=== PATIENT | male | born 1965 | race Caucasian/White ===

== ENCOUNTER 2019-04-17 13:20 | Inpatient (IN) | payer OTHER, SELFPAY ==
[2019-04-17] VITALS (23 sets, daily range): BP systolic 103–157; BP diastolic 67–113; PULSE 58–81; RESP 10–21; TEMP 36.4; O2SAT 97–100; BMI 29.5; BMI 29.6; BMI 29.7
--- NOTE | 2019-04-17 13:30 | NURSING ---
STEMI SURVEILLANCE DIRECTOR ELIZABETH
--- NOTE | 2019-04-17 13:31 | EKG12_ITS ---
Test Reason : AM Blood Pressure : / mmHG Vent. Rate : 063 BPM Atrial Rate : 063 BPM P-R Int : 150 ms QRS Dur : 082 ms QT Int : 428 ms P-R-T Axes : 053 -45 030 degrees QTc Int : 437 ms Normal sinus rhythm Left axis deviation T wave abnormality, consider anterior ischemia Abnormal ECG When compared with ECG of 18-APR-2019 04:48, MANUAL COMPARISON REQUIRED, DATA IS UNCONFIRMED Confirmed by ESTRELLITA JOHNSON ([id number]), advertising editor ELINOR BATES ([id number]) on 04/20/2019 7:29:54 AM Referred By: KAIT Confirmed By:ESTRELLITA JOHNSON
--- NOTE | 2019-04-17 13:33 | NURSING ---
NO OLD EKGS
--- NOTE | 2019-04-17 13:33 | ED.VIS.GEN ---
History of Present Illness Chief Complaint: Chest Pain Onset: Today Current Severity: Severe Maximum Severity: Severe Narrative: Patient presents with 15-minute history of sudden severe crushing chest pain with shortness of breath and diaphoresis. He denies significant past medical history. He denies cardiac history. Past Medical History - Allergies and Home Meds Allergies/Adverse Reactions: Allergies Penicillins Allergy (Verified 04/17/19 13:23) Other Surgical History: - - [place] teeth Review of Systems General: Denies: Chills, Fever Eyes: Denies: Visual changes - bilaterally Cardiovascular: Reports: Chest pain Respiratory: Reports: Dyspnea Gastrointestinal: Denies: Vomiting Musculoskeletal: Denies: Back pain Skin: Denies: Rash Neurological: Denies: Headache Hematologic: Denies: Easy bruising, Easy bleeding Allergy: Denies: Uticaria Physical Exam Vital Signs/Narrative: Vital Signs Temp Pulse Resp BP Pulse Ox 04/17/19 13:23 97.5 F L 71 20 H 113/73 99 Inital Vital Signs reviewed: Yes General: Well nourished, Well developed Head: Normocephalic ENT: Moist mucous membranes Neck: Supple Cardiovascular: Regular rate, Regular rhythm Respiratory: No distress, CTA bilaterally Abdomen: Soft, Nontender Extremities: Nontender Skin: Diaphoresis Neurological: Alert, Oriented x3 Psychological: - - Anxious Diagnostic/Tx/Re-eval - EKG Initial EKG Interpretation: Sinus Rhythm - Initial EKG reveals anterior ST elevation. - Medical Decision Making EKG has been completed as I enter the room. He has evidence of an anterior ST elevation MO. Code STEMI is called. Patient is consented for cardiac cath. He is given aspirin, Brilinta, and heparin. Patient is taken immediately to the Continuous Absorption Process Operator. I have spoken with Dr. Cabral. Eligio Zaragoza, hospitalist, is present in the ER to accompany the patient to the Continuous Absorption Process Operator. ED Disposition - Plan for ED Patient: Disposition: Acute Care Hospital [facility] Diagnosis: STEMI (ST elevation myocardial infarction)
[2019-04-17 13:37] LABS: Absolute Lymphocyte Count 6.53 X10^3/uL (0.83-4.51); Absolute Neutrophil Count 6.3 X10^3/uL (2.0-7.7); Basophil# 0.14 X10^3/uL; Basophil% 0.9 % (0-1); Eosinophil# 0.33 X10^3/uL; Eosinophils% 2.2 % (0-5); Hematocrit 42.9 % (40-54); Hemoglobin 14.9 g/dL (13.0-16.5); Lymphocyte # 6.53 X10^3/ul (4.0); Lymphocyte % 44.2 % (19-41); Mean Corp Hgb Conc 34.7 g/dL (32-36); Mean Corpuscular Volume 89.4 fL (80-94); Mean Platelet Vol. 9.4 fl (6.2-12.0); Monocyte# 1.39 X10^3/uL; Monocyte% 9.4 % (0-10); NRBC Flagged by Analyzer 0 % (0-5); Neutrophil # 6.29 X10^3/uL (2.7-7.7); Neutrophil % 42.6 % (47-70); POSITIVE DIFFERENTIAL YES; POSITIVE MORPHOLOGY YES; Platelet Count 294 K/mm3 (150-450); RBC Distribution Width CV 12.3 % (11.6-14.6); RBC Distribution Width SD 40.5 fl (35.1-43.9); White Blood Count 14.8 K/mm3 (4.4-11.0)
[2019-04-17 13:38] LABS: Differential Indicated SCAN CRITERIA MET
[2019-04-17] MEDS: Heparin Injection (Vial) 5,000 UNIT/ML VIAL 4000 UNIT IV (13:40)
[2019-04-17] MEDS: Aspirin 81 MG TAB.CHEW 324 MG PO (13:40)
[2019-04-17] MEDS: TICAGRELOR 90 MG TABLET 180 MG PO (13:40)
--- NOTE | 2019-04-17 13:40 | CM.ED ---
SOCIAL WORK RESPONDED TO STEMI ALERT. PATIENT'S ROOMMATE, MELODIECHETNA ([phone]) PRESENT. EMOTIONAL SUPPORT PROVIDED. ROOMMATE PROVIDED CONTACT INFORMATION FOR PATIENT'S DAUGHTER, JOHNNY BOWSER AND STATES HE UPDATED DAUGHTER ON PATIENT'S STATUS. CALL TO PATIENT'S DAUGHTER, JOHNNY. INTRODUCED ROLE AND PROVIDED EMOTIONAL SUPPORT. DAUGHTER STATES LIVES OUT OF [facility]. DAUGHTER STATES PATIENT MOVED TO [place] 8-9 YEARS AGO. DAUGHTER REPORTS PATIENT SERVED IN [employer] AND BELIEVES PATIENT HAS [employer] BENEF[employer]. REGISTRATION JERMAIN. 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
[2019-04-17] MEDS: 0.9% Normal Saline 1,000 ML 999 ML IV (13:41)
[2019-04-17 13:47] LABS: Prothrombin Time (Protime)PT. 12.4 SECONDS (11.7-14.9)
[2019-04-17 13:52] LABS: Reactive Lymphocyte 2+
[2019-04-17 13:56] LABS: Anion Gap 11 (5-15); BUN 14 mg/dL (7-18); BUN/Creat Ratio 12.4 RATIO (10-20); Calcium,Total 8.9 mg/dL (8.5-10.1); Chloride 111 mmol/L (98-107); Creatinine, Serum 1.13 mg/dL (0.70-1.30); EST Glomerular Filtration Rate 72 mL/min (>60); Est Glom Filt Rate - Afr Amer 87 mL/min (>60); Estimated Creatinine Clearance 85.44 ml/min; Glucose 133 mg/dL (74-106); Sodium Level 141 mmol/L (136-145)
--- NOTE | 2019-04-17 14:00 | HP.PCM_ITS ---
History of Present Illness Date of Admission: 04/17/19 Chief Complaint: Chest pain and shortness of breath, today The patient is a 53 year old M with no significant past medical history or no recent physician visit came to ED with sudden onset of chest pain or shortness of breath about 50 minutes prior to arrival in ER. The patient was significantly diaphoretic, restless because of chest pain. Chest pain was 10/10, crushing in type, midsternal in location without aggravating or relieving factor associated with shortness of breath. EKG shows normal sinus rhythm with ST elevation in anterior lateral leads. STEMI alert was called. Patient was given aspirin, Brilinta and heparin IV push and and immediately moved to the Lumber Press Operator. [] Past Medical History Allergies Penicillins Allergy (Verified 04/17/19 13:23) Other Home Medications: Ambulatory Orders Medication Instructions Recorded NK 04/17/19 Surgical History: - - [place] teeth Smoking Status: Current every day smoker - *Family History Maternal History Items: Cancer Review of Systems Constitutional: Denies: Chills, Fever, Weight Change HEENT: Denies: Head Aches, Sinus Congestion, Sinus Drainage Cardiovascular: Reports: Chest Pain. Denies: Palpitations Respiratory: Reports: Shortness of Breath, Shortness of breath at rest. Denies: Cough, Sputum production Gastrointestinal: Denies: Abdominal Pain, Nausea, Vomiting Genitourinary: Denies: Dysuria Musculoskeletal: Denies: Joint Pain, Joint Tenderness Skin: Denies: Rash, Wounds Neurological: Denies: Numbness, Tingling, Focal weakness Psychiatric: Denies: Anxiety, Depression, Homicidal Ideations, Suicidal Ideations Hematologic/ Lymphatic: Denies: Easy Bruising, Easy Bleeding VTE Information - Inpt Only VTE Present on Admission: No VTE Mechan Device Prophylaxis: SCD's VTE Pharm Prophylaxis ordered?: Yes Patient Problems: Active and Suspected Problems STEMI (ST elevation myocardial infarction) (Acute) - Physical Exam Vitals/I&O's: Vital Signs Temp Pulse Resp BP Pulse Ox 97.5 F L 71 20 H 113/73 99 04/17/19 13:46 04/17/19 13:46 04/17/19 13:46 04/17/19 13:46 04/17/19 13:46 Oxygen Delivery Method Room Air Weight: 224 lb 3.362 oz Body Mass Index (BMI) 29.5 General: Alert, Oriented x3, Cooperative HEENT: Atraumatic, PERRLA, EOMI, Normocephalic Oral: No Gingival or Mucosal Lesions/ Ulcerations, Dry Mucosa Neck: Supple, No JVD, Negative Carotid Bruits Lungs: Clear to auscultation, No rhonchi, No wheeze, No rales, Diminished Cardiovascular: Regular rate, Regular Rhythm, Normal S1, Normal S2, No murmurs Abdomen: Bowel Sounds Present, Soft, Non Tender, Non-Distended Extremities: No edema, Capillary Refill Less than 3 Seconds Skin: No rashes, No breakdown Musculoskeletal: No Tenderness to Palpation of Joints or Extremities, Arthritic Changes Neurological: Cranial nerves II-XII grossly intact Psych/Mental Status: Normal Affect, Appropriate Laboratory Results 04/17/19 13:30: WBC 14.8 H, RBC 4.80, Hgb 14.9, Hct 42.9, MCV 89.4, MCH 31.0, MCHC 34.7, RDW Std Deviation 40.5, RDW Coeff of Lillian 12.3, Plt Count 294, MPV 9.4, Immature Gran % (Auto) 0.700, Neut % (Auto) 42.6 L, Lymph % (Auto) 44.2 H, [place] % (Auto) 9.4, Eos % (Auto) 2.2, Baso % (Auto) 0.9, Absolute Neuts (auto) 6.3, Absolute Lymphs (auto) 6.53 H, Nucleated RBC % 0, Reactive Lymphocytes 2+ 04/17/19 13:30: PT 12.4, INR 1.0, APTT 22.0 L 04/17/19 13:30: Sodium 141, Potassium 3.0 L, Chloride 111 H, Carbon Dioxide 19.0 L, Anion Gap 11, BUN 14, Creatinine 1.13, Estim Creat Clear Calc 85.44, Est GFR (MDRD) Af Amer 87, Est GFR (MDRD) Non-Af 72, BUN/Creatinine Ratio 12.4, Glucose 133 H, Calcium 8.9, Troponin I < 0.015 Current Medications Sodium Chloride () 1,000 mls @ 999 mls/hr IV .Q1H1M ABRAM Last Admin: 04/17/19 13:41 Dose: 999 mls/hr Documented by: Assessment/Plan All Active Problems STEMI (ST elevation myocardial infarction) (Acute) This 53-year gentleman with no significant history admitted with 15 minutes of severe chest pain or shortness of breath and EKG finding consistent with anterolateral STEMI. In the Lumber Press Operator, patient was found to have mid LAD occluded which was stented. Mild disease in circumflex, OM1 and proximal RCA less than 30%. EF 65% by LV gram normal LV wall motion and systolic function. Discussed with Dr. Cabral in Lumber Press Operator. 1. Anterior lateral wall STEMI: Patient is immediately moved to Lumber Press Operator after giving aspirin, Brilinta and heparin 4000 IV push. Patient on aspirin, Brilinta, metoprolol and losartan and high intensity statin. 2D echo ordered. 2. Arrhythmia: Brief episode of torsade/ventricular fibrillation. As per Dr. Cabral, it was brief less than 10 seconds. Patient normal sinus rhythm was recovered after 1 DC shock. Magnesium 2 g IV sulfate ordered. Patient has hypokalemia, K3.0 and potassium is being replaced. Magnesium stat ordered. 3. DVT prophylaxis: Lovenox 40 mg subcu daily, to be started 24 hours after removal of cardiac cath access sheath. B/L SCDs. Patient had received IV heparin bolus as mentioned above. Inpatient E&M: [id number] In Hosp L3
[2019-04-17 14:25] LABS: ACT Activated Clotting Time 191 sec (74-137)
--- NOTE | 2019-04-17 14:33 | CL.D_ITS ---
Patient Name: CURT BOWSER Study Date: 04/17/2019 Performing: Randy Cabral MD Ht: 72.83 inches 185 cm : 1965 Wt: 224.87 lbs 102 kg Age: 53 Gender: male BSA: 2.26 PROCEDURE(S) PERFORMED HS43-JRS/COR/LV CLINICAL PROFILE AND INDICATIONS Patient presents with STEMI for emergent cardiac cath. Indications: ACS <= 24 hrs, Suspected CAD Heart Failure: None Stress/Imaging Stress/Image Study Performed: No Angina Classification Anginal Classification w/in 2 Weeks: No symptoms CAD Presentations: STEMI. Symptom onset Date/Time: 04/17/2019 13:10:00 Time Estimated Comorbidities/Risk Factors: Current/Recent Smoker (< 1year) Hypertension Dyslipidemia CONCLUSIONS Non obstructive coronary arteries Single vessel CAD of the LAD Normal LV size, wall motion,and systolic function Normal Left Ventricular systolic function LVEF: by LV gram 65 % Elevated Left Ventricular End Diastolic Pressure RECOMMENDATIONS Referred for immediate PCI DESCRIPTION OF PROCEDURE The patient arrived to the procedure lab. The risks and benefits of the procedure as well as a full d escription of our services here and current unavailability of surgical backup were fully explained to the patient and/or their significant other prior to the catheterization. The Timeout was completed, verifying the correct patient and procedure. The patient's procedural site was prepped and draped in the usual fashion. Local anesthetic was given subcutaneously to right groin region with Lidocaine 2%. Using a modified Seldinger technique, arterial access was obtained via the right femoral artery, a 6 Fr sheath was inserted. Right Coronary Artery selective angiography was then performed in multiple v iews using a 4 Fr. 3DRC catheter. Left Coronary Artery selective angiography was performed in multipl e views using a 6 Fr.. Left Ventriculography was performed in VILLALBA projection using a 4 Fr. Pigtail ca theter. LV to AO pullback pressures were then recorded.Contrast was injected through the sheath and the Right Iliac and Femoral artery were assessed for possible closure device.The arterial sheath was sutured in place and capped CORONARY ANGIOGRAPHY DOMINANCE: Right Dominant LEFT HEART ASSESSMENT Left Ventricular Ejection Fraction: by LV Gram 65 % Normal LV wall motion Normal Left Ventricular systolic function LVEDP: 17 mmHg LEFT MAIN: Angiographically normal LEFT ANTERIOR DESCENDING ARTERY: MID LAD: is occluded CIRCUMFLEX ARTERY: Mild luminal irregularities less than 30% OM 1: Proximal - Mild luminal irregularities less than 30% RIGHT CORONARY ARTERY: PROX RCA: Mild luminal irregularities less than 30% COMPLICATIONS PROCEDURE MEDICATIONS Oxygen: 2 L/min via nasal cannula Heparin 6000 unit(s) IV 04/17/2019 13:43:12 Nitro 200 mcg IC 04/17/2019 13:52:05 Magnesium Sulfate drip started 52 ml/hr ^FreeText^ 04/17/2019 13:54:50 Potassium Chloride 10 mEq in 100cc NS 04/17/2019 14:04:04 SUMMARY OF HEMODYNAMIC DATA Time AIR REST ECG 13:36:12 AO 125/68 (92) SA 13:40:29 AO 323/-15 (101) 13:46:12 AO -2/-5 (-3) 13:46:20 AO 30/15 (40) 13:46:26 AO 71/39 (61) 13:46:31 LV 121/-7, 19 14:16:02 LV 123/-6, 26 14:16:09 LVp 121/-8, 23 14:16:18 AOp 112/62 (85) 14:16:23 Signed By Randy Cabral MD On 04/17/2019 2:32:34 PM Randy Cabral MD
--- NOTE | 2019-04-17 15:05 | EKG12_ITS ---
Test Reason : POST-PCI Blood Pressure : / mmHG Vent. Rate : 074 BPM Atrial Rate : 074 BPM P-R Int : 176 ms QRS Dur : 086 ms QT Int : 410 ms P-R-T Axes : 062 -37 020 degrees QTc Int : 455 ms Normal sinus rhythm Left axis deviation Abnormal ECG When compared with ECG of 17-APR-2019 13:25, MANUAL COMPARISON REQUIRED, DATA IS UNCONFIRMED Confirmed by ESTRELLITA JOHNSON ([id number]), editorial clerk ELINOR BATES ([id number]) on 04/20/2019 7:31:30 AM Referred By: ELIZABETH Confirmed By:ESTRELLITA JOHNSON
--- NOTE | 2019-04-17 15:35 | ECHOD_ITS ---
Reason For Study: s/p TN Procedure This was a 2D Doppler, Color Flow transthoracic echocardiogram. Exam performed portable in ICU/CCU. Left Ventricle Normal size and thickness. The estimated ejection fraction is 60 %. Normal diastology for age. Anterior [place] : Mildly hypokinetic. Septal [place] : Mildly hypokinetic. Right Ventricle Normal size and thickness. Normal systolic function. Atria Normal left atrium. Normal right atrium. Normal atrial septum. Mitral Valve The mitral valve is structurally normal. No prolapse or stenosis seen. Tricuspid Valve Normal tricuspid valve. Unable to estimate RV systolic pressure due to insufficient tricuspid regurgitant envelope. Aortic Valve Normal aortic valve. Trisinus/trileaflet aortic valve. Pulmonic Valve Normal pulmonic valve. Great Vessels Normal aortic root. Normal arch. Normal inferior vena cava. Inferior vena cava collapse with sniff. Pericardium/Pleural No pericardial effusion. MMode/2D Measurements & Calculations LVIDd: 4.7 cm IVSd: 1.5 cm Ao root diam: 3.8 cm LVIDs: 2.7 cm LVPWd: 1.0 cm LA dimension: 3.9 cm RVDd: 3.7 cm FS: 42.1 % LAV(MOD-bp): 60.7 ml LA A4 area: 21.9 cm2 RA A4 area: 14.7 cm2 LAV(MOD-bp) Indexed: 26.9 ml/m2 LAV(MOD-sp2): 55.4 ml LAV(MOD-sp4): 64.1 ml Time Measurements MV dec time: 0.25 sec Doppler Measurements & Calculations MV E max eddy: 85.7 cm/sec Lat [place]: 9.0 cm/sec Med [place]: 10.3 cm/sec MV A max eddy: 75.5 cm/sec E/E' lat: 9.5 E/E' med: 8.4 MV E/A: 1.1 MV V2 max: 94.4 cm/sec MV P1/2t max eddy: 94.4 cm/sec Ao V2 max: 117.4 cm/sec MV max P.6 mmHg MV P1/2t: 121.5 msec Ao max P.5 mmHg MV V2 mean: 51.9 cm/sec MV dec slope: 227.6 cm/sec2 Ao V2 mean: 78.2 cm/sec MV mean P.3 mmHg MVA(P1/2t): 1.8 cm2 Ao mean P.7 mmHg MV V2 VTI: 32.4 cm Ao V2 VTI: 25.0 cm LV V1 max: 102.7 cm/sec PA V2 max: 82.8 cm/sec LV V1 max P.2 mmHg LV V1 mean P.3 mmHg LV V1 mean: 69.8 cm/sec LV V1 VTI: 25.7 cm Interpretation Summary The estimated ejection fraction is 60 %. Normal diastology for age. Anterior [place] : Mildly hypokinetic Septal [place] : Mildly hypokinetic Unable to estimate RV systolic pressure due to insufficient tricuspid regurgitant envelope. There is no comparison study available. Ordering Physician: Randy Cabral Referring Physician: No PCP Performed By: Willie Baltazar [facility]
[2019-04-17 15:42] LABS: Magnesium 2.1 mg/dL (1.6-2.6)
[2019-04-17] MEDS: 0.9% Saline Lock 10 ML Syringe IV (17:03)
[2019-04-17] MEDS: 0.9% Normal Saline 1,000 ML 150 ML IV (17:03)
[2019-04-17 17:16] LABS: ACT Activated Clotting Time 131 sec (74-137)
[2019-04-17 19:47] LABS: Potassium 4.1 mmol/L (3.5-5.1)
[2019-04-17] MEDS: Metoprolol Tartrate 25 MG Tablet PO (21:12)
[2019-04-17] MEDS: TICAGRELOR 90 MG TABLET PO (21:12)
[2019-04-17] MEDS: Atorvastatin Calcium 80 MG Tablet PO (21:12)
[2019-04-18] VITALS (24 sets, daily range): BP systolic 118–161; BP diastolic 54–99; PULSE 51–69; RESP 10–18; TEMP 36.3–37; O2SAT 96–99; BMI 29.5
[2019-04-18 03:28] LABS: Hematocrit 41.2 % (40-54); Hemoglobin 13.9 g/dL (13.0-16.5); Mean Corp Hgb Conc 33.7 g/dL (32-36); Mean Corpuscular Hgb 30.5 pg (27.0-32.0); Mean Corpuscular Volume 90.5 fL (80-94); Mean Platelet Vol. 9.5 fl (6.2-12.0); Platelet Count 242 K/mm3 (150-450); RBC Distribution Width CV 12.3 % (11.6-14.6); RBC Distribution Width SD 40.7 fl (35.1-43.9); Red Blood Count 4.55 M/mm3 (4.6-6.2); White Blood Count 14.4 K/mm3 (4.4-11.0)
[2019-04-18 04:15] LABS: ALB/GLOB Ratio 1.1 RATIO (0.9-2.4); AST(SGOT) 32 U/L (15-37); Alanine Aminotransfer ALT/SGPT 31 U/L (16-61); Albumin, Serum 3.5 g/dL (3.2-5.0); Alkaline Phosphatase 91 U/L (45-117); Anion Gap 8 (5-15); BUN 10 mg/dL (7-18); BUN/Creat Ratio 10.6 RATIO (10-20); Calcium,Total 8.2 mg/dL (8.5-10.1); Chloride 108 mmol/L (98-107); Cholesterol 166 mg/dL (200); Creatinine, Serum 0.94 mg/dL (0.70-1.30); EST Glomerular Filtration Rate 89 mL/min (>60); Est Glom Filt Rate - Afr Amer 107 mL/min (>60); Estimated Creatinine Clearance 102.71 ml/min; Globulin 3.2 g/dL (2.2-4.2); Glucose 107 mg/dL (74-106); High Density Lipoprotein 43 mg/dL; Potassium 4.3 mmol/L (3.5-5.1); Protein, Total 6.7 g/dL (6.4-8.2); Sodium Level 141 mmol/L (136-145); Thyroid Stim Hormone (TSH) 5.28 uIU/mL (0.358-3.74); Triglycerides 155 mg/dL; Very Low Density Lipoprotein 31 mg/dL (5-40)
[2019-04-18 07:10] LABS: ACT Activated Clotting Time 158 sec (74-137)
--- NOTE | 2019-04-18 07:45 | PCM.PN.HOSP ---
Patient Problems: Active and Suspected Problems (Last Updated 04/17/19 @ 18:29 by Ann Tanner) Arteriosclerosis of coronary artery in patient with history of myocardial infarction (Acute) STEMI (ST elevation myocardial infarction) (Acute) Reason for Visit: Follow-up acute ST segment elevation PR Subjective: Patient is a 53-year-old gentleman who presented with chest pain and shortness of breath. EKG obtained on admission demonstrated anterolateral ST segment elevation PR patient underwent emergency left catheterization with PCI/JE Objective: GENERAL: cooperative HEENT: Atraumatic; EYES; Anicteric, Normal Conjunctiva NECK; supple, normal thyroid, RESPIRATORY: Diminished to auscultation CARDIOVASCULAR: Regular S1 S2, GI: soft, normoactive bowel sounds, : No Renal angle tenderness; EXTREMITIES: No edema, no clubbing, MUSCULOSKELETAL: no muscle waisting NEURO: Awake; no lateralizing signs. SKIN: No Rash PSYCH; Flat affect Vitals/I&O's: Vital Signs Temp Pulse Resp BP Pulse Ox 98.1 F 57 L 14 156/99 H 98 04/18/19 03:00 04/18/19 06:00 04/18/19 06:00 04/18/19 06:00 04/18/19 06:00 Oxygen Delivery Method Room Air Weight: 103.3 kg Body Mass Index (BMI) 29.7 Intake and Output for Last 24 Hours 04/16/19 04/17/19 04/18/19 23:59 23:59 23:59 Intake Total 2480 / 2730 370 / 370 Output Total 1800 / 2550 1475 / 1475 Balance 680 / 180 -1105 / -1105 Laboratory Results 04/17/19 13:30: WBC 14.8 H, RBC 4.80, Hgb 14.9, Hct 42.9, MCV 89.4, MCH 31.0, MCHC 34.7, RDW Std Deviation 40.5, RDW Coeff of Lillian 12.3, Plt Count 294, MPV 9.4, Immature Gran % (Auto) 0.700, Neut % (Auto) 42.6 L, Lymph % (Auto) 44.2 H, [place] % (Auto) 9.4, Eos % (Auto) 2.2, Baso % (Auto) 0.9, Absolute Neuts (auto) 6.3, Absolute Lymphs (auto) 6.53 H, Nucleated RBC % 0, Reactive Lymphocytes 2+ 04/17/19 13:30: PT 12.4, INR 1.0, APTT 22.0 L 04/17/19 13:30: Sodium 141, Potassium 3.0 L, Chloride 111 H, Carbon Dioxide 19.0 L, Anion Gap 11, BUN 14, Creatinine 1.13, Estim Creat Clear Calc 85.44, Est GFR (MDRD) Af Amer 87, Est GFR (MDRD) Non-Af 72, BUN/Creatinine Ratio 12.4, Glucose 133 H, Calcium 8.9, Troponin I < 0.015 04/17/19 13:30: Magnesium 2.1 04/17/19 13:30: Magnesium 2.0 04/17/19 13:41: Activated Clotting Time 158 H 04/17/19 14:16: Activated Clotting Time 191 H 04/17/19 16:01: Activated Clotting Time 131 04/17/19 16:40: Troponin I 3.240 H* 04/17/19 19:20: Potassium 4.1 04/17/19 19:20: Troponin I 5.390 H* 04/18/19 03:20: WBC 14.4 H, RBC 4.55 L, Hgb 13.9, Hct 41.2, MCV 90.5, MCH 30.5, MCHC 33.7, RDW Std Deviation 40.7, RDW Coeff of Lillian 12.3, Plt Count 242, MPV 9.5 04/18/19 03:20: Sodium 141, Potassium 4.3, Chloride 108 H, Carbon Dioxide 25.0, Anion Gap 8, BUN 10, Creatinine 0.94, Estim Creat Clear Calc 102.71, Est GFR (MDRD) Af Amer 107, Est GFR (MDRD) Non-Af 89, BUN/Creatinine Ratio 10.6, Glucose 107 H, Calcium 8.2 L, Total Bilirubin 0.40, AST 32, ALT 31, Alkaline Phosphatase 91, Total Protein 6.7, Albumin 3.5, Globulin 3.2, Albumin/Globulin Ratio 1.1, Triglycerides 155, Cholesterol 166, LDL Cholesterol 92, VLDL Cholesterol 31, HDL Cholesterol 43, TSH 5.28 H Current Medications Acetaminophen (Tylenol) 650 mg PO Q6H PRN PRN PRN Reason: Pain Score 1-3/10 Albuterol Sulfate (Ventolin Aerosols) 2.5 mg INHALATION Q2H PRN PRN PRN Reason: SOB/Wheezing Aspirin (Ecotrin) 81 mg PO DAILY@0800 [facility] Atorvastatin Calcium (Lipitor) 80 mg PO QHS [facility] Last Admin: 04/17/19 21:12 Dose: 80 mg Documented by: Atropine Sulfate () 0.5 mg IV UD PRN PRN Reason: HR <50 bpm Dextrose (D50w Syringe) 0 gm IV X1 PRN; Protocol PRN Reason: Hypoglycemia Diazepam (Valium) 5 mg PO Q6H PRN PRN PRN Reason: BACK SPASMS/ANXIETY Glucagon () 1 mg IM .X1 PRN PRN Reason: Hypoglycemia Heparin Sodium (Beef Lung) (Heparin 500 Unit/5 Ml (100/Ml)) 500 unit IV UD PRN PRN Reason: HEPARIN FLUSH Labetalol HCl (Trandate) 5 mg IV X1 PRN PRN Reason: SBP > 160 when pulling sheath Losartan Potassium (Cozaar) 12.5 mg PO DAILY [facility] Melatonin (Melatonin) 3 mg PO QHS PRN PRN PRN Reason: INSOMNIA Metoclopramide HCl (Reglan) 5 mg IV Q6H PRN PRN PRN Reason: NAUSEA/VOMITING Metoprolol Tartrate (Lopressor (Beta Jesus)) 25 mg PO BID [facility] Last Admin: 04/17/19 21:12 Dose: 25 mg Documented by: Morphine Sulfate () 2 mg IV Q3H PRN PRN PRN Reason: Pain Score 6-10/10 Morphine Sulfate () 2 - 4 mg IV Q4H PRN PRN PRN Reason: Pain Score 1-10/10 Nitroglycerin (Nitrostat) 0.4 mg SUBLINGUAL Q5M PRN PRN Reason: CARDIAC/CHEST PAIN Ondansetron HCl (Zofran) 4 mg IV Q8H PRN PRN PRN Reason: NAUSEA/VOMITING Oxycodone HCl (Oxyir) 5 mg PO Q4H PRN PRN PRN Reason: Pain Score 4-5/10 Sodium Chloride () 500 ml IV BOLUS PRN PRN Reason: VASO-VAGAL PROTOCOL Sodium Chloride () 10 - 40 ml IV UD PRN PRN Reason: SALINE FLUSH Last Admin: 04/17/19 17:03 Dose: 10 ml Documented by: Ticagrelor (Brilinta) 90 mg PO BID [facility] Last Admin: 04/17/19 21:12 Dose: 90 mg Documented by: STROKE Vital Signs/Narrative: Vital Signs Pulse Resp BP Pulse Ox 04/18/19 06:00 57 L 14 156/99 H 98 04/18/19 05:00 60 10 L 148/90 H 99 04/18/19 04:00 59 L 14 151/87 H 98 Medical Necessity - Tobacco Use Smoking Status: Current every day smoker Tobacco Use: Cigarettes Assessment/Plan All Active Problems (Last Updated 04/17/19 @ 18:29 by Ann Tanner) Arteriosclerosis of coronary artery in patient with history of myocardial infarction (Acute) STEMI (ST elevation myocardial infarction) (Acute) Patient is a 53-year-old gentleman who presented with chest pain and shortness of breath. EKG obtained on admission demonstrated anterolateral ST segment elevation PR patient underwent emergency left catheterization with PCI/JE 1. Acute anterolateral ST segment elevation PR - Patient underwent left heart catheterization by Dr. Cabral on 04/17/2019 findings included mid LAD lesion for which patient underwent PCI/JE. Was also found to have mild disease in circumflex, OM1 and proximal RCA. EF was estimated to be 65% by LV gram with normal LV wall motion and systolic function 2. Essential hypertension ?Newly diagnosed patient will be discharged on antihypertensive medication 3. Epigastric discomfort ?Suspected to be secondary to GERD 4. Tobacco dependence -counseled on cessation, offered nicotine patch for tobacco cravings 5. DVT prophylaxis ?Low risk did encourage early ambulation Active Medications Acetaminophen (Tylenol) 650 mg PO Q6H PRN PRN PRN Reason: Pain Score 1-3/10 Albuterol Sulfate (Ventolin Aerosols) 2.5 mg INHALATION Q2H PRN PRN PRN Reason: SOB/Wheezing Aspirin (Ecotrin) 81 mg PO DAILY@0800 [facility] Atorvastatin Calcium (Lipitor) 80 mg PO QHS [facility] Last Admin: 04/17/19 21:12 Dose: 80 mg Documented by: Atropine Sulfate () 0.5 mg IV UD PRN PRN Reason: HR <50 bpm Dextrose (D50w Syringe) 0 gm IV X1 PRN; Protocol PRN Reason: Hypoglycemia Diazepam (Valium) 5 mg PO Q6H PRN PRN PRN Reason: BACK SPASMS/ANXIETY Glucagon () 1 mg IM .X1 PRN PRN Reason: Hypoglycemia Heparin Sodium (Beef Lung) (Heparin 500 Unit/5 Ml (100/Ml)) 500 unit IV UD PRN PRN Reason: HEPARIN FLUSH Labetalol HCl (Trandate) 5 mg IV X1 PRN PRN Reason: SBP > 160 when pulling sheath Losartan Potassium (Cozaar) 12.5 mg PO DAILY [facility] Melatonin (Melatonin) 3 mg PO QHS PRN PRN PRN Reason: INSOMNIA Metoclopramide HCl (Reglan) 5 mg IV Q6H PRN PRN PRN Reason: NAUSEA/VOMITING Metoprolol Tartrate (Lopressor (Beta Jesus)) 25 mg PO BID [facility] Last Admin: 04/17/19 21:12 Dose: 25 mg Documented by: Morphine Sulfate () 2 mg IV Q3H PRN PRN PRN Reason: Pain Score 6-10/10 Morphine Sulfate () 2 - 4 mg IV Q4H PRN PRN PRN Reason: Pain Score 1-10/10 Nitroglycerin (Nitrostat) 0.4 mg SUBLINGUAL Q5M PRN PRN Reason: CARDIAC/CHEST PAIN Ondansetron HCl (Zofran) 4 mg IV Q8H PRN PRN PRN Reason: NAUSEA/VOMITING Oxycodone HCl (Oxyir) 5 mg PO Q4H PRN PRN PRN Reason: Pain Score 4-5/10 Sodium Chloride () 500 ml IV BOLUS PRN PRN Reason: VASO-VAGAL PROTOCOL Sodium Chloride () 10 - 40 ml IV UD PRN PRN Reason: SALINE FLUSH Last Admin: 04/17/19 17:03 Dose: 10 ml Documented by: Ticagrelor (Brilinta) 90 mg PO BID [facility] Last Admin: 04/17/19 21:12 Dose: 90 mg Documented by: Inpatient E&M: [id number] [facility] Hosp L2
--- NOTE | 2019-04-18 08:11 | CL.I_ITS ---
Patient Name: CURT BOWSER Study Date: 04/17/2019 Performing: Randy Cabral MD Ht: 72.83 inches 185 cm : 1965 Wt: 224.87 lbs 102 kg Age: 53 Gender: male BSA: 2.26 PROCEDURE(S) PERFORMED WR62-SLI/COR/LV CB60-MIS, JE AND/OR PTCA, ARTERY OR GRAFT, SINGLE VESSEL [id number], EACH ADD'L CORONARY ART, SAME MAJOR CLINICAL PROFILE AND CO-MORBIDITIES Patient presents with STEMI for emergent cardiac cath. Indications: ACS <= 24 hrs, Suspected CAD Heart Failure: None Stress/Imaging Stress/Image Study Performed: No Angina Classification Anginal Classification w/in 2 Weeks: No symptoms CAD Presentations: STEMI. Symptom onset Date/Time: 04/17/2019 13:10:00 Time Estimated Comorbidities/Risk Factors: Current/Recent Smoker (< 1year) Hypertension Dyslipidemia CONCLUSIONS Non obstructive coronary arteries Single vessel CAD of the LAD Normal LV size, wall motion,and systolic function Normal Left Ventricular systolic function LVEF: by LV gram 65 % Elevated Left Ventricular End Diastolic Pressure Successful PTCA/JE mid LAD with thrombectomy, using a 3.5 x 28 Promus Synergy, post dilated with a 4 .0 x 8 NC Balloon; 100%-->0%, no dissection. Successful PCI with PTCA to the ostial DIAG#2 with a 2.0 x 12 balloon; 75%-->30%, no dissection. RECOMMENDATIONS Referred for immediate PCI Highly recommend quitting all tobacco products Follow up with primary clinical quality assurance associate Risk factor modification ASA Indefinitley Plavix for at least 12 months Routine post interventional care Refer for Outpatient Cardiac Rehab Manual sheath removal per protocol Follow up with Dr. Cabral Manual sheath removal. DESCRIPTION OF PROCEDURE The patient arrived to the procedure lab. The risks and benefits of the procedure as well as a full d escription of our services here and lack of surgical backup were fully explained to the patient and/o r their significant other prior to the catheterization. The Timeout was completed, verifying the luis ect patient and procedure. The patient's procedural site was prepped and draped in the usual fashion. Local anesthetic was given subcutaneously to right groin region with Lidocaine 2%. Using a modified Seldinger technique, arterial access was obtained via the right femoral artery, a 6Fr sheath was inse rted.. Right Coronary Artery selective angiography was then performed in multiple views using a 4 Fr . 3DRC catheter. Left Coronary Artery selective angiography was performed in multiple views using a 6 Fr.. Left Ventriculography was performed in VILLALBA projection using a 4 Fr. Pigtail catheter. LV to AO pullback pressures were then recordedThe images were reviewed and options discussed. A decision was then made to proceed with an Intervention, IVUS or other adjunct procedure. ebu 3.75 Guide catheter was inserted and engaged into the LCA. runthrough Guide wire was advanced to the LAD. emerge 2.00x 12 Balloon catheter was advanced across lesion in the LAD, mid. PTCA balloo n inflated at 6 atms for 6 secs. PTCA balloon inflated at 8 atms for 8 secs. [place] AP inserted Pass # 1 [place] AP Removed bmw Guide wire was advanced to the Diagonal. emerge 2.00 x 12 Balloon catheter was advanced across lesion in the diagonal, ostial. PTCA balloon inflated at 8 atms for 25 secs. PT CA balloon inflated at 6 atms for 11 secs. Angiogram performed post balloon dilatation. synergy 3.5 x 28 Drug Eluting stent was advanced across the lesion in the LAD, mid. Angiogram performed post stent deployment. nc emerge 4.00 x 8 Balloon catheter was inserted post stent. Angiogram performed post ba lloon dilatation. nc emerge 4.00 x 8 Balloon catheter was inserted post stent. Angiogram performed po st balloon dilatation. Contrast was injected through the sheath and the Right Iliac and Femoral artery were assessed for possible closure device. The arterial sheath was sutured in place a nd capped CORONARY ANGIOGRAPHY DOMINANCE: Right Dominant LEFT HEART ASSESSMENT Left Ventricular Ejection Fraction: by LV Gram 65 % Normal Left Ventricular systolic function LVEDP: 17 mmHg Normal LV wall motion LEFT MAIN: Angiographically normal LEFT ANTERIOR DESCENDING ARTERY: MID LAD: is occluded CIRCUMFLEX ARTERY: Mild luminal irregularities less than 30% OM 1: Proximal - Mild luminal irregularities less than 30% RIGHT CORONARY ARTERY: PROX RCA: Mild luminal irregularities less than 30% INTERVENTION INFORMATION LESION SITE: LAD (Mid) Lesion Complexity: High/C, lesion at bifurcation: Yes, thrombus present: Yes, lesion length: 28 mm, c ulprit lesion: Yes Pre Stenosis: 100 % Pre intervention ALIZE flow: 0 PROCEDURE: Thrombectomy, Drug Eluting Stent with pre and post dilatation Post Stenosis: 0 % Post intervention ALIZE flow: 3 Lesion Devices: Medtronic 6 Fr EBU3.75 100cm Guide Catheter Terumo .014 Runthrough Extra Floppy 180cm straight Medtronic 6 Fr. [place] AP Aspiration Catheter Michael Sci EMERGE MR 2.00x12 BALLOON Michael Sci Synergy MR JE 3.50x28 Michael Sci NC EMERGE MR 4.00x08 BALLOON LESION SITE: 2nd Diagonal (Ostial) Lesion Complexity: Non-High/Non-C, lesion at bifurcation: Yes, thrombus present: No, lesion length:12 mm, culprit lesion: No PROCEDURE: Balloon Angioplasty Lesion Devices: Michael Sci EMERGE MR 2.00x12 BALLOON Yanes .014 BMW [place] Straight 190cm COMPLICATIONS No Complications PROCEDURE MEDICATIONS Oxygen: 2 L/min via nasal cannula Heparin 6000 unit(s) IV 04/17/2019 13:43:12 Nitro 200 mcg IC 04/17/2019 13:52:05 Magnesium Sulfate drip started 52 ml/hr ^FreeText^ 04/17/2019 13:54:50 Potassium Chloride 10 mEq in 100cc NS 04/17/2019 14:04:04 SUMMARY OF HEMODYNAMIC DATA Time AIR REST ECG 13:36:12 AO 125/68 (92) SA 13:40:29 AO 323/-15 (101) 13:46:12 AO -2/-5 (-3) 13:46:20 AO 30/15 (40) 13:46:26 AO 71/39 (61) 13:46:31 LV 121/-7, 19 14:16:02 LV 123/-6, 26 14:16:09 LVp 121/-8, 23 14:16:18 AOp 112/62 (85) 14:16:23 RM AIR REST 14:32:21 Signed By Randy Cabral MD On 04/18/2019 08:10:16 Randy Cabral MD
--- NOTE | 2019-04-18 08:12 | PCM.PN.CARD ---
Subjectve: Patient doing very well overnight. No further chest pain or anginal symptoms. The patient did have some upper GI distention, relieved with burping. Telemetry showed normal sinus rhythm, no PVCs. Right groin is clean/dry/intact without evidence of thrills, bruits or hematoma. EKG shows normal sinus rhythm, ST elevation resolved, excellent R wave progression across the precordium. No evidence of Q waves. Peak troponin so far is 5.3. Hemoglobin and creatinine are within nominal limits. Objective: Vital Signs Temp Pulse Resp BP Pulse Ox 98.1 F 61 14 156/99 H 98 04/18/19 03:00 04/18/19 08:00 04/18/19 06:00 04/18/19 06:00 04/18/19 06:00 Oxygen Delivery Method Room Air Weight: 227 lb 11.8 oz Body Mass Index (BMI) 29.7 Intake and Output for Last 24 Hours 04/16/19 04/17/19 04/18/19 23:59 23:59 23:59 Intake Total 2480 / 2730 370 / 370 Output Total 1800 / 2550 1475 / 1475 Balance 680 / 180 -1105 / -1105 General: Awake, Alert, Oriented x 3 HEENT: PERRL, EOMI, Sclera Non Icteric Neck: Supple, Good ROM, No Lymph Node Enlargement Lungs: Clear to auscultation Cardiovascular: Regular Rhythm, Normal S1, Normal S2, No Murmurs, No Rubs, No Gallops Vascular: No Carotid Bruits, Normal Femoral Pulses, Normal Radial Pulses, Normal Dorsalis Pedal Pulse, Normal Posterior Tibial Pulses Abdomen: Bowel Sounds Present, Soft, Non Tender, No HSM, No Organomegaly Extremities: No Cyanosis, No Clubbing, No edema Neurological: No Focal Motor or Sensory Deficit 04/17/19 13:30: WBC 14.8 H, RBC 4.80, Hgb 14.9, Hct 42.9, MCV 89.4, MCH 31.0, MCHC 34.7, Plt Count 294, MPV 9.4, Immature Gran % (Auto) 0.700, Neut % (Auto) 42.6 L, Lymph % (Auto) 44.2 H, Cottle % (Auto) 9.4, Eos % (Auto) 2.2, Baso % (Auto) 0.9, Absolute Neuts (auto) 6.3, Nucleated RBC % 0 04/17/19 13:30: PT 12.4, INR 1.0, APTT 22.0 L 04/17/19 13:30: Sodium 141, Potassium 3.0 L, Chloride 111 H, Carbon Dioxide 19.0 L, Anion Gap 11, BUN 14, Creatinine 1.13, Est GFR (MDRD) Af Amer 87, Est GFR (MDRD) Non-Af 72, BUN/Creatinine Ratio 12.4, Glucose 133 H, Calcium 8.9, Troponin I < 0.015 04/17/19 13:30: Magnesium 2.1 04/17/19 13:30: Magnesium 2.0 04/17/19 16:40: Troponin I 3.240 H* 04/17/19 19:20: Potassium 4.1 04/17/19 19:20: Troponin I 5.390 H* 04/18/19 03:20: WBC 14.4 H, RBC 4.55 L, Hgb 13.9, Hct 41.2, MCV 90.5, MCH 30.5, MCHC 33.7, Plt Count 242, MPV 9.5 04/18/19 03:20: Sodium 141, Potassium 4.3, Chloride 108 H, Carbon Dioxide 25.0, Anion Gap 8, BUN 10, Creatinine 0.94, Est GFR (MDRD) Af Amer 107, Est GFR (MDRD) Non-Af 89, BUN/Creatinine Ratio 10.6, Glucose 107 H, Calcium 8.2 L, Total Bilirubin 0.40, Triglycerides 155, Cholesterol 166, LDL Cholesterol 92, VLDL Cholesterol 31, HDL Cholesterol 43 Rhythm: EKG: ECHO: Pending Stress Test: Cardiac Cath: PCI: CT Surgery: Holter monitor: EPS: PPM: CXR: Chest CT Scan: Medical Necessity - Tobacco Use Smoking Status: Current every day smoker Tobacco Use: Cigarettes Assessment/Plan 1. Coronary artery disease: Patient presented with acute anterior wall myocardial infarction within 15 minutes of the onset of symptoms, followed by emergent angioplasty and drug-eluting stenting to the mid LAD receiving a 3.5X 28 Promus Synergy stent, postdilated in the proximal two thirds with a 4.0 noncompliant balloon. The patient also underwent balloon angioplasty only of the ostium of the diagonal #2. Patient's LV function was normal at the end of procedure, and so far peak troponin is 5.3. The patient will continue baby aspirin, Brilinta, metoprolol, and Cozaar. He will undergo a 2D echo with Doppler today to document his LV function, valvular status and pulmonary pressures. If the patient is able to ambulate in his groin is clean/dry/intact he may be discharged home tomorrow. His status may be downgraded to PCU at this time. 2. Hyperlipidemia: Continue high-dose Lipitor 80 mg p.o. nightly, and repeat lipid profile in 6 weeks time. 3. Tobacco cessation: I strongly encouraged the patient discontinue all tobacco products. Patient is voiced understanding and has agreed to do so. 4. Thank you very much for the opportunity to participate in the cardiac care of your patient. Inpatient E&M: [id number] Subs Hosp L2
--- NOTE | 2019-04-18 08:16 | CRPHASE1_ITS ---
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 , Work-related Laboratory Values: Cardiac Rehab Phase I Labs Triglycerides 155 mg/dL (-199) 04/18/19 03:20 Cholesterol 166 mg/dL (200) 04/18/19 03:20 LDL Cholesterol 92 mg/dL (0-130) 04/18/19 03:20 HDL Cholesterol 43 mg/dL (40-) 04/18/19 03:20 Discharge/Home/Social Eval Discharge Disposition: Home - CR DISCUSSED WITH PT, CHOICE LOCATIONS AND GUIDE TO INSURANCE QUESTIONS TO ASK Cardiac Rehabilitation Info Cardiac Rehabilitation Program Information: Cardiac Rehabilitation is important for patients like you who are recovering from a heart problem. Cardiac rehabilitation programs are recognized as integral to the continued care of the patient with coronary heart disease. The cardiac rehabilitation program is designed to optimize a patient's physical, psychological, and social functioning. Health manager managed care work in cardiac rehabilitation programs and assist you with getting the treatments you need to get stronger and healthier - like exercise, healthy eating habits, and medications. Cardiac rehabilitation has been show to help people with heart problems live longer and have better life enjoyment than people who do not go to cardiac rehabilitation. Please contact the Cardiac Rehabilitation Program at [facility] at in two weeks if you have not heard from them.
--- NOTE | 2019-04-18 08:19 | CRPH1.INST_ITS ---
General Education CAD and cardiac anatomy and function:: Not instructed - PT LIVES IN [place], CHOICE PLACES IN HIS AREA SHOWN IN [place] AND WELL QUESTIONS TO ASK HIS INSURANCE CO PRIOR TO ATTENDING A CR PROGRAM Explanation of diagnoses and procedures:: Not instructed Sign/Symptoms of SD:: Not instructed Proper use of NTG-SL: Not instructed Emergency procedures and activation of EMS: Not instructed Compliance of all prescribed medications: Not instructed Smoking Nicotine/Smoking Response Code:: Not instructed Dyslipidemia Dyslipidemia Response Code:: Not instructed Overweight/Obesity Patient Overweight/Obesity Risk Factors Are:: BMI Normal [24-29 & > 65 years old] Hypertension Patient Hypertension Risk Factors Are:: No documented hx of HTN Heart Disease Heart Disease Response Code:: Not instructed Diabetes Patient Diabetes Risk Factors Are:: No documented hx of diabetes Diabetes:: Not instructed Metabolic Syndrome Metabolic Syndrome Response Code:: Not instructed Sedentary Sedentary Response Code:: Not instructed
[2019-04-18] MEDS: Ondansetron 4 MG/2 ML Vial IV (09:14)
[2019-04-18] MEDS: 0.9% Saline Lock 10 ML Syringe IV (09:14)
[2019-04-18] MEDS: Magnesium Hydroxide 30 ML UDC 15 ML PO (09:51)
[2019-04-18] MEDS: Losartan Potassium 25 MG Tablet 12.5 MG PO (09:52)
[2019-04-18] MEDS: TICAGRELOR 90 MG TABLET PO ×2 (09:52→21:10)
[2019-04-18] MEDS: Metoprolol Tartrate 25 MG Tablet PO ×2 (09:52→21:10)
[2019-04-18] MEDS: Aspirin E.C. 81 MG Tablet PO (09:52)
--- NOTE | 2019-04-18 10:00 | EKG12_ITS ---
Test Reason : AM EKG Blood Pressure : / mmHG Vent. Rate : 058 BPM Atrial Rate : 058 BPM P-R Int : 146 ms QRS Dur : 086 ms QT Int : 450 ms P-R-T Axes : 033 003 038 degrees QTc Int : 441 ms Sinus bradycardia Otherwise normal ECG When compared with ECG of 17-APR-2019 14:49, MANUAL COMPARISON REQUIRED, DATA IS UNCONFIRMED Confirmed by ESTRELLITA JOHNSON ([id number]), legal editor ELINOR BATES ([id number]) on 04/20/2019 7:35:12 AM Referred By: ELIZABETH Confirmed By:ESTRELLITA JOHNSON
--- NOTE | 2019-04-18 13:07 | PN_ITS ---
Progress Note Patient is scheduled for an office appointment with the [facility] on 04/11/2019 at 1:30 PM with Jorge Michaels Nurse practitioner. STROKE Vital Signs/Narrative: Vital Signs Temp Pulse Resp BP BP Pulse Ox 04/18/19 12:00 98.1 F 54 L 13 138/79 H 96 04/18/19 11:00 54 L 12 136/91 H 96 04/18/19 10:00 69 16 143/88 H 96 04/18/19 09:52 59 L 141/86 H 04/18/19 09:15 98
--- NOTE | 2019-04-18 14:48 | CASEMGMT ---
Addendum entered by Kendra Barba 04/18/19 15:16: 1445: Discussed option to transfer to [facility] if a bed is available, but pt declines. Declination to transfer form signed by pt. Copy made and placed on chart and original given to pt. Form faxed to [facility]/Transfer Dept along with clinicals. Discharge instructions/summary to be faxed to [facility] at discharge. Original Note: RN CM BALL WORKER CM to room to meet with patient for initial transition planning/care coordination assessment. RN OCHOA introduced self and role at [facility]. Pt voices understanding and consents to assessment at this time. Pt resting in bed in no distress at this time. Pt is A/O at this time and answers all questions appropriately. Care providers, pharmacy, and demographics verified/updated at this time. PCP: No PCP. Given list of local PCP's in [place], [place] Specialists: None Preferred Pharmacy: [facility]. Insurance: Pt states he does have insurance, but states he has not opened up the mail/envelope yet with the Insurance card in it and does not know the name of Insurance company he is enrolled in. Asked pt if there is anyone that can bring the Insurance card in but pt states there is not. Advised to bring his insurance card in as soon as possible. Pt states he also has VA benefits. Prescription Benefit: States he does have prescription coverage but does not know the name of the company and has not submitted the card to the pharmacy yet. Pt made aware he will need to get the prescription benefit card and take to [facility] pharmacy prior to picking up his medication after discharge. Pt voices understanding. Anticipate pt will discharge home on Brilinta. 30-day Brilinta Savings Card given and instructed on use. Pt made aware of importance of taking medication. Pt made aware to let city bailiff know if cost of refills is not-affordable to discuss other options of anti-coag. He voices understanding. Living Will/HPOA: States does not have LW or HCPOA . Interested in more information and would like to talk with SW to complete paperwork, but states he is tired and wants to wait until tomorrow to complete paperwork. Provided pt with AD information and marketing services specialist rac card. Anticipate pt will be discharged tomorrow. Pt made aware if SW is unable to meet with him tomorrow prior to discharge, that he can make an appt as an out-pt w/SW for AD completion. Pt voices understanding. Pt voices that he would want his daughter, Loraine Devlin, to be his Healthcare POA. He states he has other adult children but he would not want them making decisions for his healthcare. LNOK: Daughter, Loraine Devlin. Living Arrangements: Lives with a roommate, Shravan. States he is independent with ADL's and IADL's. Transportation: Pt states drives self and states no transportation concerns at this time. States his roommate will take him home @ discharge. DME: Denies using any DME and denies needs. HHC/SNF: No history of either. Denies needs and no needs identified. Pt wishes to return home and states has no concerns with going home at time of discharge. CM to follow for any discharge planning/needs. Pt voices no further concerns/needs at this time. Advised pt to ask for CM if any further questions/concerns/needs arise. Voices understanding. PLAN: Home. Given [employer] savings card and instructed on use. Leann MENDEZ RN CM
[2019-04-18] MEDS: Atorvastatin Calcium 80 MG Tablet PO (21:11)
[2019-04-19] VITALS (8 sets, daily range): BP systolic 112–125; BP diastolic 81–83; PULSE 55–74; RESP 14–17; TEMP 36.8–37.1; O2SAT 96–97
[2019-04-19] MEDS: Aspirin E.C. 81 MG Tablet PO (08:57)
[2019-04-19] MEDS: Losartan Potassium 25 MG Tablet 12.5 MG PO (08:58)
[2019-04-19] MEDS: TICAGRELOR 90 MG TABLET PO (08:58)
[2019-04-19] MEDS: Metoprolol Tartrate 25 MG Tablet PO (08:58)
--- NOTE | 2019-04-19 09:45 | DCINST_ITS ---
- Discharge Diagnoses Current Active Problems: Current Active and Chronic Problems (Last Updated 04/17/19 @ 18:29 by Ann Tanner) Stented coronary artery (Chronic 04/17/19) Successful PTCA/JE mid LAD with thrombectomy, using a 3.5 x 28 Promus Synergy. Successful PCI with PTCA to the ostial DIAG#2. 04/17/2019 per ABBY @ [facility] Arteriosclerosis of coronary artery in patient with history of myocardial infarction (Acute) STEMI (ST elevation myocardial infarction) (Acute) You will use the following diet at home:: Cardiac Discharge Activity: Return to Normal Activity Allergies/Adverse Reactions: Allergies Penicillins Allergy (Verified 04/17/19 13:23) Other Medications to take at Discharge NK 04/17/19 Aspirin E.C. [Ecotrin] 81 mg PO DAILY@0800 #90 tab 04/19/19 Atorvastatin Calcium [Lipitor] 80 mg PO QHS #90 tab 04/19/19 Losartan Potassium [Cozaar] 12.5 mg PO DAILY #90 tab 04/19/19 Metoprolol Tartrate [Lopressor (beta karen)] 25 mg PO BID #180 tab 04/19/19 Ticagrelor [Brilinta] 90 mg PO BID #180 tab 04/19/19 The following prescriptions were given: Ticagrelor [Brilinta] 90 mg PO BID #180 tab Transmission Status: Pending to [employer] #[id number] Losartan Potassium [Cozaar] 12.5 mg PO DAILY #90 tab Transmission Status: Pending to [employer] #[id number] Aspirin E.C. [Ecotrin] 81 mg PO DAILY@0800 #90 tab Transmission Status: Pending to [employer] #[id number] Atorvastatin Calcium [Lipitor] 80 mg PO QHS #90 tab Transmission Status: Pending to [employer] #[id number] Metoprolol Tartrate [Lopressor (beta karen)] 25 mg PO BID #180 tab Transmission Status: Pending to [employer] #[id number] Orders to be completed after discharge: Phase II, Outpatient Cardiac Rehab Location: None Selected Primary Care Physician: Care Physician,No Primary [Primary Care Provider] - Test Results: Test results from this visit will be discussed in further detail at your follow- up appointment, if applicable. Please Follow Up With: Randy Cabral MD When: as scheduled Proposed Discharge Date: 04/19/19
--- NOTE | 2019-04-19 09:48 | PCM.DC.SUM ---
Discharge Date and Diagnosis - Problem List Patient Problems: Active and Suspected Problems (Last Updated 04/17/19 @ 18:29 by Ann Tanner) Arteriosclerosis of coronary artery in patient with history of myocardial infarction (Acute) STEMI (ST elevation myocardial infarction) (Acute) Date of Admission: 04/17/19 Date of Discharge: 04/19/19 - Primary Discharge Diagnosis Active and Suspected Problems (Last Updated 04/17/19 @ 18:29 by Ann Tanner) Arteriosclerosis of coronary artery in patient with history of myocardial infarction (Acute) STEMI (ST elevation myocardial infarction) (Acute) - Secondary Discharge Diagnosis Chronic Problems (Last Updated 04/18/19 @ 08:40 by Ann Tanner) Stented coronary artery (Chronic 04/17/19) Successful PTCA/JE mid LAD with thrombectomy, using a 3.5 x 28 Promus Synergy. Successful PCI with PTCA to the ostial DIAG#2. 04/17/2019 per FORRESTN @ [facility] [address] Course and Treatment Summary of Care Provided: Patient is a 53-year-old gentleman who presented with chest pain and shortness of breath. EKG obtained on admission demonstrated anterolateral ST segment elevation HI patient underwent emergency left catheterization with PCI/JE 1. Acute anterolateral ST segment elevation HI - Patient underwent left heart catheterization by Dr. Cabral on 04/17/2019 findings included mid LAD lesion for which patient underwent PCI/JE. Was also found to have mild disease in circumflex, OM1 and proximal RCA. 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 Patient was deemed safe for discharge. Was discharged on recommended medications including beta-blockers, statin therapy, ARB aspirin as well as Brilinta. Prescription was written for 90 days. Patient was instructed to follow-up with cardiology for refills. 2. Essential hypertension ?Newly diagnosed patient will be discharged on antihypertensive medication 3. Epigastric discomfort ?Suspected to be secondary to GERD 4. Tobacco dependence -counseled on cessation, offered nicotine patch for tobacco cravings 5. DVT prophylaxis ?Low risk did encourage early ambulation Patient Problems: Active and Suspected Problems (Last Updated 04/17/19 @ 18:29 by Ann Tanner) Arteriosclerosis of coronary artery in patient with history of myocardial infarction (Acute) STEMI (ST elevation myocardial infarction) (Acute) Objective: GENERAL: cooperative HEENT: Atraumatic; EYES; Anicteric, Normal Conjunctiva NECK; supple, normal thyroid, RESPIRATORY: Diminished to auscultation CARDIOVASCULAR: Regular S1 S2, GI: soft, normoactive bowel sounds, : No Renal angle tenderness; EXTREMITIES: No edema, no clubbing, MUSCULOSKELETAL: no muscle waisting NEURO: Awake; no lateralizing signs. SKIN: No Rash PSYCH; Flat affect - Physical Exam Vitals/I&O's: Vital Signs Temp Pulse Resp BP Pulse Ox 98.2 F 74 14 112/81 H 97 04/19/19 08:48 04/19/19 08:58 04/19/19 08:48 04/19/19 08:48 04/19/19 08:48 Oxygen Delivery Method Room Air Weight: 94.6 kg Body Mass Index (BMI) 29.7 Intake and Output for Last 24 Hours 04/17/19 04/18/19 04/19/19 23:59 23:59 23:59 Intake Total 2480 / 2730 1550 / 2275 1085 / 1085 Output Total 1800 / 2550 3625 / 3625 Balance 680 / 180 -2075 / -1350 1085 / 1085 Current Medications Acetaminophen (Tylenol) 650 mg PO Q6H PRN PRN PRN Reason: Pain Score 1-3/10 Albuterol Sulfate (Ventolin Aerosols) 2.5 mg INHALATION Q2H PRN PRN PRN Reason: SOB/Wheezing Aspirin (Ecotrin) 81 mg PO DAILY@0800 [facility] Last Admin: 04/19/19 08:57 Dose: 81 mg Documented by: Atorvastatin Calcium (Lipitor) 80 mg PO QHS [facility] Last Admin: 04/18/19 21:11 Dose: 80 mg Documented by: Atropine Sulfate () 0.5 mg IV UD PRN PRN Reason: HR <50 bpm Dextrose (D50w Syringe) 0 gm IV X1 PRN; Protocol PRN Reason: Hypoglycemia Diazepam (Valium) 5 mg PO Q6H PRN PRN PRN Reason: BACK SPASMS/ANXIETY Glucagon () 1 mg IM .X1 PRN PRN Reason: Hypoglycemia Heparin Sodium (Beef Lung) (Heparin 500 Unit/5 Ml (100/Ml)) 500 unit IV UD PRN PRN Reason: HEPARIN FLUSH Labetalol HCl (Trandate) 5 mg IV X1 PRN PRN Reason: SBP > 160 when pulling sheath Losartan Potassium (Cozaar) 12.5 mg PO DAILY [facility] Last Admin: 04/19/19 08:58 Dose: 12.5 mg Documented by: Magnesium Hydroxide (Milk Of Magnesia) 15 ml PO BID PRN PRN Reason: HEARTBURN OR INDIGESTION Last Admin: 04/18/19 09:51 Dose: 15 ml Documented by: Melatonin (Melatonin) 3 mg PO QHS PRN PRN PRN Reason: INSOMNIA Metoclopramide HCl (Reglan) 5 mg IV Q6H PRN PRN PRN Reason: NAUSEA/VOMITING Metoprolol Tartrate (Lopressor (Beta Jesus)) 25 mg PO BID [facility] Last Admin: 04/19/19 08:58 Dose: 25 mg Documented by: Morphine Sulfate () 2 mg IV Q3H PRN PRN PRN Reason: Pain Score 6-10/10 Morphine Sulfate () 2 - 4 mg IV Q4H PRN PRN PRN Reason: Pain Score 1-10/10 Nitroglycerin (Nitrostat) 0.4 mg SUBLINGUAL Q5M PRN PRN Reason: CARDIAC/CHEST PAIN Ondansetron HCl (Zofran) 4 mg IV Q8H PRN PRN PRN Reason: NAUSEA/VOMITING Last Admin: 04/18/19 09:14 Dose: 4 mg Documented by: Oxycodone HCl (Oxyir) 5 mg PO Q4H PRN PRN PRN Reason: Pain Score 4-5/10 Sodium Chloride () 500 ml IV BOLUS PRN PRN Reason: VASO-VAGAL PROTOCOL Sodium Chloride () 10 - 40 ml IV UD PRN PRN Reason: SALINE FLUSH Last Admin: 04/18/19 09:14 Dose: 10 ml Documented by: Sodium Chloride () 10 - 40 ml IV UD PRN PRN Reason: SALINE FLUSH Ticagrelor (Brilinta) 90 mg PO BID [facility] Last Admin: 04/19/19 08:58 Dose: 90 mg Documented by: Discharge Diet: Low fat/ Low Cholesterol Discharge Activity: Return to Normal Activity Home Medications: Medications to take at Discharge aspirin 81 mg tablet,delayed release 81 mg PO DAILY@0800 #90 tab 04/19/19 atorvastatin 80 mg tablet 80 mg PO QHS #90 tab 04/19/19 losartan 25 mg tablet 12.5 mg PO DAILY #45 tab 04/19/19 metoprolol tartrate 25 mg tablet 25 mg PO BID #180 tab 04/19/19 ticagrelor 90 mg tablet 90 mg PO BID #180 tab 04/19/19 Other Amb Orders: Phase II, Outpatient Cardiac Rehab Location: None Selected Primary Care Physician: Care Physician,No Primary [Primary Care Provider] - Please Follow Up With: Randy Cabral MD When: as scheduled Disposition: Home Minutes spent on discharge:: 35 Patient Condition:: Stable Medical Necessity - Tobacco Use Smoking Status: Current every day smoker Tobacco Use: Cigarettes Meaningful Use Info Meaningful Use Diagnoses (Choose all that apply): AMI - AMI/Post PCI/Angioplasty Aspirin given w/in 24hrs of arrival?: Yes ASA at discharge?: Yes Antiplatelet Therapy at Discharge:: Yes Statins at discharge?: Yes Antonino/ARB at discharge?: Yes Beta Jesus at discharge?: Yes Done w/ Acute HI measure.: Yes Documented LVEF (%): 60 Inpatient E&M: 36575 Disch Hosp
--- NOTE | 2019-04-19 10:00 | EKG12_ITS ---
Test Reason : Blood Pressure : / mmHG Vent. Rate : 073 BPM Atrial Rate : 073 BPM P-R Int : 152 ms QRS Dur : 096 ms QT Int : 434 ms P-R-T Axes : 056 -15 -03 degrees QTc Int : 478 ms Normal sinus rhythm ST elevation consider anterolateral injury or acute infarct ACUTE ME / STEMI Abnormal ECG Confirmed by JEAN-CLAUDE VALERA, MAN ([id number]), features editor ELINOR BATES ([id number]) on 04/25/2019 7:48:28 AM Referred By: ANNA Confirmed By:MAN BERMEO MD
--- NOTE | 2019-04-19 10:15 | PCM.PN.CARD ---
Subjectve: Patient doing very well this morning. Telemetry showed normal sinus rhythm, no PVCs. Right groin is clean/dry/intact with mild ecchymosis but no bruits, tenderness or hematoma. Objective: Vital Signs Temp Pulse Resp BP Pulse Ox 98.2 F 74 14 112/81 H 97 04/19/19 08:48 04/19/19 08:58 04/19/19 08:48 04/19/19 08:48 04/19/19 08:48 Oxygen Delivery Method Room Air Weight: 208 lb 8.917 oz Body Mass Index (BMI) 29.7 Intake and Output for Last 24 Hours 04/17/19 04/18/19 04/19/19 23:59 23:59 23:59 Intake Total 2480 / 2730 1550 / 2275 1085 / 1085 Output Total 1800 / 2550 3625 / 3625 Balance 680 / 180 -2075 / -1350 1085 / 1085 General: Awake, Alert, Oriented x 3 HEENT: PERRL, EOMI, Sclera Non Icteric Neck: Supple, Good ROM, No Lymph Node Enlargement Lungs: Clear to auscultation Cardiovascular: Regular Rhythm, Normal S1, Normal S2, No Murmurs, No Rubs, No Gallops Vascular: No Carotid Bruits, Normal Femoral Pulses, Normal Radial Pulses, Normal Dorsalis Pedal Pulse, Normal Posterior Tibial Pulses Abdomen: Bowel Sounds Present, Soft, Non Tender, No HSM, No Organomegaly Extremities: No Cyanosis, No Clubbing, No edema Neurological: No Focal Motor or Sensory Deficit Rhythm: EKG: ECHO: Stress Test: Cardiac Cath: PCI: CT Surgery: Holter monitor: EPS: PPM: CXR: Chest CT Scan: Medical Necessity - Tobacco Use Smoking Status: Current every day smoker Tobacco Use: Cigarettes Assessment/Plan 1. Coronary artery disease: Patient presented with acute anterior wall myocardial infarction within 15 minutes of the onset of symptoms, followed by emergent angioplasty and drug-eluting stenting to the mid LAD receiving a 3.5X 28 Promus Synergy stent, postdilated in the proximal two thirds with a 4.0 noncompliant balloon. The patient also underwent balloon angioplasty only of the ostium of the diagonal #2. Patient's LV function was normal at the end of procedure, and so far peak troponin is 5.3. The patient will continue baby aspirin, Brilinta, metoprolol, and Cozaar. His echocardiogram yesterday demonstrated relatively intact LV function with mild minimal apical hypokinesis. We will repeat his echocardiogram at the conclusion of cardiac rehab. If the patient is able to ambulate in his groin is clean/dry/intact he may be discharged home today, and follow-up with Dr. Cabral going forward. He does not require any additional stress testing and may proceed to cardiac rehab in 2 weeks time. 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 2. Hyperlipidemia: Continue high-dose Lipitor 80 mg p.o. nightly, and repeat lipid profile in 6 weeks time. 3. Tobacco cessation: I strongly encouraged the patient discontinue all tobacco products. Patient is voiced understanding and has agreed to do so. 4. Thank you very much for the opportunity to participate in the cardiac care of your patient. Patient may be discharged home. Inpatient E&M: 62044 [facility] Hosp L2
== END 2019-04-19 13:21 | disposition home or self-care (01) | DRG 246 ==
LOC: ED 13:40 → ICU 14:18 → PCU 04-18 19:46
PROVIDERS: Internal Medicine Cardiovascular Disease; Admitting Provider Internal Medicine; Emergency Provider Emergency Medicine; Visit Provider Internal Medicine
DX: I21.09 ST elevation (STEMI) myocardial infarction involving other coronary artery of anterior wall (principal); I49.01 Ventricular fibrillation; I47.2 Ventricular tachycardia; E87.6 Hypokalemia; I10 Essential (primary) hypertension; F17.210 Nicotine dependence, cigarettes, uncomplicated; E78.5 Hyperlipidemia, unspecified; I25.10 Atherosclerotic heart disease of native coronary artery without angina pectoris
CPT/HCPCS: 80048; 80053; 80061; 83735; 84132; 84443; 84484; 85025; 85027; 85347; 85610; 85730; 92921; 92941; 93005; 93306; 93458; 99284; 99406; J7030; J7040; Q9957; Q9967; A4216; C1725; C1757; C1769; C1874; C1887; C9606; J1327; J2405